=== PATIENT | male | born 1965 | race Caucasian/White ===

== ENCOUNTER 2020-06-08 00:35 | Outpatient (CLI) | payer BC, SELFPAY ==
[2020-06-08 20:15] LABS: SARS-CoV-2 RNA PCR Negative
== END 2020-06-08 00:36 | disposition home or self-care (01) ==
LOC: ANHCOVIDDT 00:35
PROVIDERS: PCP Family Medicine; Visit Provider Internal Medicine Gastroenterology
DX: Z01.818 Encounter for other preprocedural examination (principal); Z20.828 Contact with and (suspected) exposure to other viral communicable diseases
CPT/HCPCS: 87635; C9803; U0003

== ENCOUNTER 2020-06-11 01:23 | Day surgery (SDC) | payer BC, SELFPAY ==
[2020-06-06 09:02] VITALS: BMI 26.6
[2020-06-11 07:52] VITALS: BP 133/93; PULSE 77; RESP 20; TEMP 36.6; O2SAT 100
--- NOTE | 2020-06-11 08:07 | WPDANESEPPF ---
Anes - Initial Pre Proc Eval Procedure: Operation Date: 06/11/20 09:00 Proposed Procedures p Screening Colonoscopy - Misbah Nevarez MD Date/Time: 06/11/20 08:07 Surgeon: Misbah Nevarez MD Pre Op Diagnosis: neoplasm screening Patient Data Age: 55 Gender: M Height: 5 ft 9 in Weight: 82.3 kg Last Vital Signs Temp 36.6 C 06/11/20 07:52 Pulse 77 06/11/20 07:52 Resp 20 06/11/20 07:52 BP 133/93 H 06/11/20 07:52 Pulse Ox 100 06/11/20 07:52 Allergies Allergy/AdvReac Type Severity Reaction Status Date / Time No Known Allergies Allergy Verified 06/11/20 07:50 Home Medications Medication Instructions Recorded Confirmed Type gaervzay-nwh-rlehn acid 300 1 tablet PO DAILY 12/07/19 06/06/20 History mcg-lycopene 600 mcg-lutein 300 mcg tablet zinc acetate 50 mg (zinc) capsule 50 mg PO DAILY 12/07/19 06/06/20 History cholecalciferol (vitamin D3) 50 mcg PO DAILY 06/06/20 06/06/20 History lisinopril 10 mg tablet 10 mg PO DAILY #90 tablet 06/07/20 06/11/20 Rx Patient hx anesthesia problems: none Family hx anesthesia problems: none PMFSH Past Medical History Medical History Benign essential hypertension (~12/07/19) Encounter for screening for malignant neoplasm of colon Prediabetes Umbilical hernia Family History Family History Mother Heart disease S/P CABG x 2 HLD (hyperlipidemia) Father HLD (hyperlipidemia) Heart disease Mother Diabetes mellitus Family history of cardiovascular disease Father Hypertension Other Acute myocardial infarction Social History Social History Smoking status: Never smoker Alcohol intake: current Drinks per week: 4 Alcohol use details: wine on the weekends Substance use: never Living arrangements: alone 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 Questions were solicited and answers provided to the satisfaction of the patient/family/POA.
[2020-06-11] MEDS: LACTATED RINGERS 1,000 ML 150 ML IV CONT (08:09)
--- NOTE | 2020-06-11 08:11 | WPDANESEPPF ---
Anes - Initial Pre Proc Eval Procedure: Operation Date: 06/11/20 09:00 Proposed Procedures p Screening Colonoscopy - Misbah Nevarez MD Date/Time: 06/11/20 08:11 Surgeon: Misbah Nevarez MD Pre Op Diagnosis: neoplasm screening Patient Data Age: 55 Gender: M Height: 5 ft 9 in Weight: 82.3 kg Last Vital Signs Temp 36.6 C 06/11/20 07:52 Pulse 77 06/11/20 07:52 Resp 20 06/11/20 07:52 BP 133/93 H 06/11/20 07:52 Pulse Ox 100 06/11/20 07:52 Allergies Allergy/AdvReac Type Severity Reaction Status Date / Time No Known Allergies Allergy Verified 06/11/20 07:50 Home Medications Medication Instructions Recorded Confirmed Type fphiecyb-kmf-yfbza acid 300 1 tablet PO DAILY 12/07/19 06/06/20 History mcg-lycopene 600 mcg-lutein 300 mcg tablet zinc acetate 50 mg (zinc) capsule 50 mg PO DAILY 12/07/19 06/06/20 History cholecalciferol (vitamin D3) 50 mcg PO DAILY 06/06/20 06/06/20 History lisinopril 10 mg tablet 10 mg PO DAILY #90 tablet 06/07/20 06/11/20 Rx Patient hx anesthesia problems: none Family hx anesthesia problems: none PMFSH Past Medical History Medical History Benign essential hypertension (~12/07/19) Encounter for screening for malignant neoplasm of colon Prediabetes Umbilical hernia Family History Family History Mother Heart disease S/P CABG x 2 HLD (hyperlipidemia) Father HLD (hyperlipidemia) Heart disease Mother Diabetes mellitus Family history of cardiovascular disease Father Hypertension Other Acute myocardial infarction Social History Social History Smoking status: Never smoker Alcohol intake: current Drinks per week: 4 Alcohol use details: wine on the weekends Substance use: never Living arrangements: alone 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 Questions were solicited and answers provided to the satisfaction of the patient/family/POA.
--- NOTE | 2020-06-11 08:32 | PM.HPGS ---
History of Present Illness History of Present Illness Consent: Risks, benefits, and alternatives have been discussed and questions answered. Patient agrees to proceed with procedure. Chief complaint: neoplasm screening Narrative: Hever Rivera is a 55 year old male here for first screening colonoscopy Review of Systems Constitutional: Constitutional: Denies headache(s) and Denies weakness Eyes: Eyes: Denies blurry vision ENT: Reports Normal hearing present, Denies headache(s) and Denies neck pain Cardiovascular: Cardiovascular: Denies chest pain and Denies dyspnea Respiratory: Respiratory: Denies dyspnea Gastrointestinal: Gastrointestinal: Reports no additional gastrointestinal complaints Genitourinary: Genitourinary: Denies dysuria Musculoskeletal: Musculoskeletal: Denies neck pain Integumentary/Breasts: Skin/Breast: Denies dry skin Neurologic: Reports Normal hearing present, Denies headache(s) and Denies weakness Psychiatric: Psychiatric: Denies anxiety Endocrine: Endocrine: Denies change in body appearance Hematologic/Lymphatic: Hematologic/Lymphatic: Denies easy bleeding Allergic/Immunologic: Allergic/Immunologic: Denies urticaria PMF Past Medical History Medical History Benign essential hypertension (~12/07/19) Encounter for screening for malignant neoplasm of colon Prediabetes Umbilical hernia Family History Family History Mother Heart disease S/P CABG x 2 HLD (hyperlipidemia) Father HLD (hyperlipidemia) Heart disease Mother Diabetes mellitus Family history of cardiovascular disease Father Hypertension Other Acute myocardial infarction Social History Social History Smoking status: Never smoker Alcohol intake: current Drinks per week: 4 Alcohol use details: wine on the weekends Substance use: never Living arrangements: alone 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 Gender identity (if verbalized by the patient): Male Spiritual care concerns: No Meds Home Medications and Allergies Home Medications Medication Instructions Recorded Confirmed Type bdcumopy-zqb-edmdk acid 300 1 tablet PO DAILY 12/07/19 06/06/20 History mcg-lycopene 600 mcg-lutein 300 mcg tablet zinc acetate 50 mg (zinc) capsule 50 mg PO DAILY 12/07/19 06/06/20 History cholecalciferol (vitamin D3) 50 mcg PO DAILY 06/06/20 06/06/20 History lisinopril 10 mg tablet 10 mg PO DAILY #90 tablet 06/07/20 06/11/20 Rx Allergies Allergy/AdvReac Type Severity Reaction Status Date / Time No Known Allergies Allergy Verified 06/11/20 07:50 Vital Signs Vital Signs - 24 hr 06/11/20 07:52 Temperature 97.8 F Pulse Rate 77 Respiratory Rate 20 Blood Pressure 133/93 H Pulse Oximetry 100 Exam Const: General: comfortable and no acute distress HENMT: General nose exam: Normal nares present Eyes: General: appearance normal, both eyes and all related structures Neck: Neck: no JVD Resp: Auscultation: clear to auscultation bilaterally Cardio: Rate: regular rate Rhythm: regular rhythm GI: Inspection: non-distended GI Palp: Yes Soft to palpation Skin: General skin exam: normal color Neuro: General: gait normal Speech: normal speech Extrem: General: normal to inspection Psych: Mental Status: mental status grossly normal Assessment and Plan Assessment and plan (1) Encounter for screening for malignant neoplasm of colon: Code(s): Z12.11 - Encounter for screening for malignant neoplasm of colon Status: Acute Assessment and Plan: will proceed with colonoscopy
[2020-06-11 08:50] VITALS: BP 120/79; PULSE 81; RESP 14; O2SAT 94
[2020-06-11 09:00] VITALS: BP 125/85; PULSE 75; RESP 19; O2SAT 98
[2020-06-11 09:10] VITALS: BP 123/78; PULSE 73; RESP 15; O2SAT 96
== END 2020-06-11 09:22 | disposition home or self-care (01) ==
PROVIDERS: PCP Family Medicine; Visit Provider Internal Medicine Gastroenterology
PROC: 0DJD8ZZ Inspection of Lower Intestinal Tract, Via Natural or Artificial Opening Endoscopic (ICD-10-PCS; CPT 45378; principal; 2020-06-11 09:00)
DX: Z12.11 Encounter for screening for malignant neoplasm of colon (principal); K64.8 Other hemorrhoids; K57.30 Diverticulosis of large intestine without perforation or abscess without bleeding; R73.03 Prediabetes; K42.9 Umbilical hernia without obstruction or gangrene; I10 Essential (primary) hypertension
CPT/HCPCS: 45378; J2704; J7120

== ENCOUNTER → 2022-11-27 09:05 | Outpatient (CLI) | payer OTHER, SELFPAY ==
--- NOTE | ~2022-11-27 | XR_ITS ---
Right Hand Technique: PA, oblique, and lateral views were obtained. Clinical History: Fifth finger injury Findings: There is an oblique intra-articular fracture at the base of the fifth middle phalanx, minim ally displaced. No other fracture or dislocation seen. Joint spaces are preserved. Soft tissues are u nremarkable. Impression: Oblique, intra-articular, minimally displaced fracture of the base of the fifth middle phalanx. Reviewed, dictated and finalized at location M. Impression: Oblique, intra-articular, minimally displaced fracture of the base of the fifth middle phalanx.
== END ==
PROVIDERS: PCP Family Medicine; Visit Provider Nurse Practitioner Family
DX: S62.626A Displaced fracture of middle phalanx of right little finger, initial encounter for closed fracture (principal); X58.XXXA Exposure to other specified factors, initial encounter
CPT/HCPCS: 73130

== ENCOUNTER 2023-08-31 07:56 | Outpatient (CLI) | payer OTHER, SELFPAY ==
--- NOTE | 2023-08-31 08:01 | ECG_ITS ---
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
== END 2023-08-31 07:57 | disposition home or self-care (01) ==
LOC: ANHSURGERY 08:00
PROVIDERS: PCP Family Medicine; Visit Provider Surgery
DX: K40.20 Bilateral inguinal hernia, without obstruction or gangrene, not specified as recurrent (principal); I10 Essential (primary) hypertension; Z01.818 Encounter for other preprocedural examination
CPT/HCPCS: 36415; 86850; 86900; 86901; 93005

== ENCOUNTER 2023-09-01 02:05 | Day surgery (SDC) | payer OTHER, SELFPAY ==
[2023-08-27 14:05] VITALS: BMI 26.6
--- NOTE | 2023-08-27 14:09 | PC.NURSE ---
Report to the Outpatient Waiting Room, entrance under the green pavilion located off [facility], at time 10:00 on date 09/01/23. Planned Procedure Time: 12:00. Time changes happen often and if your time is changed the preop area will call you the afternoon before. - You and your visitor will be asked to self-screen and do not enter if you have any COVID symptoms. - A mask is optional within the hospital at this time. Patients may have clear liquids (water, carbonated beverages, clear teas, apple juice) until 3 hours prior to surgery (9:00) with a maximum of 20 ounces. - No food from midnight until time of surgery Take the following medications with a SIP of water the morning of surgery: NONE DO NOT STOP ANY OF YOUR OTHER PRESCRIPTION MEDICATIONS PRIOR TO SURGERY ?EXCEPT THE FOLLOWING Medications to discontinue per physician: VITAMINS/SUPPLEMENTS Date to take last dose: 08/28/23 Please no make-up, nail montserratian, hairspray, perfume, deodorant, or body powder the day of surgery. No jewelry (including any body piercings) or valuables the day of surgery, leave them at home. Please take a shower or bath the night before, or the morning of, surgery with an antibacterial soap. Wear comfortable, loose fitting clothing. - Jewelry must be removed prior to entering the operating room. Rings and piercings that are not removed may be cut off. - The hospital will not accept responsibility for valuables. - Please leave all valuables, including medications, at home the day of surgery. If you are going home after surgery, a licensed emergency detail driver must drive you home. - NO public transportation without another adult if you receive anesthesia. - We recommend that an adult stay with you for 24 hours following discharge. - We also recommend that you do not drive, make important decision, drink alcoholic beverages, or take any drugs that were not prescribed by your health care provider for at least 24 hours after your discharge time. Follow any additional instructions given to you from your surgeon. If you or anyone in your household have experienced Covid symptoms in the past week, please notify your surgeon or the nurse liaison at the phone number below for possible testing. Telephone instructions given to PT - YOLANDA BRAGG and asked if any additional questions and then verbalized understanding. Patient advised to call surgeon office or pre surgery nurse liaison [phone] if any additional questions.
--- NOTE | 2023-08-31 15:06 | WPDANESEPPF ---
Anes - Initial Pre Proc Eval Procedure: Operation Date: 09/01/23 12:00 Proposed Procedures p Robotic Assisted Bilateral Inguinal Hernia Repair with Mesh, - Hortensia White MD s Open Umbilical Hernia Repair with Mesh - Hortensia White MD Date/Time: 08/31/23 15:06 Surgeon: Hortensia White MD Pre Op Diagnosis: bilateral Inguinal Hernia, umbilical hernia 3.5cm Patient Data Age: 58 Gender: M Height: 1.7 m Weight: 77.15 kg Allergies Allergy/AdvReac Type Severity Reaction Status Date / Time No Known Allergies Allergy Verified 09/01/23 10:44 Home Medications Medication Instructions Recorded Confirmed Type mvutybdb-kt-jzdnv 300 mcg-K 60 1 tablet PO DAILY 12/07/19 09/01/23 History mcg-lycop 600 mcg-lutein 300 mcg tablet (Centrum Silver Men) zinc acetate 50 mg (zinc) capsule 50 mg PO DAILY 12/07/19 09/01/23 History (Galzin) lisinopril 10 mg tablet 10 mg PO DAILY #90 tabs 07/07/23 09/01/23 Rx omeprazole 20 mg capsule,delayed 20 mg PO DAILY #90 caps 07/07/23 09/01/23 Rx release Patient hx anesthesia problems: none Family hx anesthesia problems: none Results Review: All pre-operative results and documents have been reviewed as part of the pre-operative evaluation. [facility] Past Medical History Medical History Benign essential hypertension (~12/07/19) Displaced fracture of base of fifth metacarpal bone (~11/2022) right - managed conservatively GERD without esophagitis Prediabetes Seasonal allergies Umbilical hernia Family History Family History Mother Heart disease S/P CABG x 2 HLD (hyperlipidemia) Father HLD (hyperlipidemia) Heart disease Mother Diabetes mellitus Family history of cardiovascular disease Father Hypertension Other Acute myocardial infarction Social History Social History Smoking status: Never smoker Alcohol intake: current Drinks per week: 4 Alcohol use details: RARE Substance use: never Substance use type: does not use Lack of Transportation: No Lack of Food: Never True Current Housing: I Have Housing Concerned About Future Housing: No Difficulty Paying Gas/Electric Bills: No Difficulty Paying for Meds: No Currently Unemployed: No Education: Decline to Answer Difficulty w/ Childcare or Family Care: No Living arrangements: with roommate(s) Occupation/Education: occupation Additional occupation/education comments: [employer] Gender identity (if verbalized by the patient): Male Spiritual care concerns: No Agree to blood products: Yes Anes - Eval Final PreProcedure Day of Procedure 08/31/23 15:06 Patient weight: overweight Heart: regular rate and rhythm Lungs: clear to auscultation Airway: Mallampati scale class III Neurological: alert and oriented Last oral intake: >/= 8 hours ASA classification: II Emergent: no Anesthetic plan: proceed Anesthesia type and monitoring: general ETT and standard monitoring Results Review: All pre-operative results and documents have been reviewed as part of the pre-operative evaluation. Informed Consent: The patient's anesthetic plan and its attendant risks and benefits were discussed with the patient/family/POA. Questions were solicited and answers provided to the satisfaction of the patient/family/POA.
[2023-09-01] VITALS (11 sets, daily range): BP systolic 99–146; BP diastolic 58–81; PULSE 48–72; RESP 12–16; TEMP 36.3–36.6; O2SAT 96–100
[2023-09-01] MEDS: KETOROLAC 15 MG/ML VIAL (*BKC) IV PUSH (10:30)
[2023-09-01] MEDS: ACETAMINOPHEN 500 MG TABLET 1000 MG PO (10:30)
[2023-09-01] MEDS: LACTATED RINGERS 1,000 ML 30 ML IV CONT ×3 (10:30→14:55)
--- NOTE | 2023-09-01 10:31 | WPDHPUPDATE1 ---
History and Physical Update Update Date/Time: 09/01/23 10:31 History and Physical has been reviewed, including an updated exam of the patient. There are NO changes in the patient's condition. Risks, benefits, and alternatives have been discussed and questions answered. Patient agrees to proceed with procedure.
[2023-09-01] MEDS: ceFAZolin 2 GM/D5W 50 ML 2 GM/50 ML BAG IVPB (11:56)
[2023-09-01] MEDS: BUPIVACAINE/EPINEPHRINE 0.5% 50 ML VIAL 30 ML INFILTRATE (12:29)
--- NOTE | 2023-09-01 13:48 | W.PM.PROC2 ---
Procedure Note - Detailed Date of Procedure 09/01/23 Pre-op Diagnosis bilateral Inguinal Hernia, umbilical hernia 3 cm Post-op Diagnosis Other (bilateral pantaloon inguinal hernia, left greater than right) Procedure Performed robotic assisted bilateral inguinal hernia repair with mesh, open umbilical hernia repair with mesh with defect noted to be 3 cm Surgeon Hortensia White MD Anesthesia General Indications Pt is a 58 y/o M presenting c 1 yr h/o bulging, discomfort in L groin and umbilicus. Exam consistent with bilateral inguinal hernias left greater than right, umbilical hernia. Findings Bilateral pantaloon hernia, 3 cm umbilical hernia Description of Procedure Patient was brought into the operating room and placed in the supine position. After adequate induction of general anesthesia, the patient was prepped and draped in normal sterile fashion. A time-out was then done to verify the patient's identity, as well as the procedure being performed. I began by making a 8 mm incision in the supraumbilical region, a Veress needle was then placed into the peritoneal cavity. CO2 gas was then insufflated and after adequate pneumoperitoneum was achieved, the Veress needle was removed. I then placed an 8 mm trocar through this incision. I then placed the endoscope through this trocar site and under direct visualization placed 2 further 8 mm ports in the right and left mid abdomen. The [employer] robot was then docked to the 3 trocar sites. I then scrubbed out and went to the robotic console. Upon examining the pelvis, it was noted that the patient had a larger sized left inguinal hernia. The right side was examined and a moderate hernia defect was noted. I began by making a preperitoneal flap approximately 6 cm superior to the left sided defect. This flap was carried medially past the umbilical ligaments and laterally to the transversalis. It then began dissection of my medial compartment taking this down to the pubic tubercle. Upon dissection of this area, a large direct hernia was encountered. I was able to dissect and reduce this direct hernia. I then began the lateral dissection taking this down to the transversalis fascia. Once these compartments were achieved, I began dissection around the cord structures. A moderate sized indirect hernia was noted at this point. Using careful dissection, was able to reduce indirect hernia sac off the cord structures. Once this was adequately done, I went ahead and placed a large piece of 3D Max mesh into the abdominal cavity. The mesh was carefully positioned, centering the center of the mesh over the direct defect. Once this was done, was very satisfied with our repair. Using 3-0 Vicryl sutures, I tacked the mesh medially to Guanakito's ligament. Two lateral sutures were placed from the mesh to the transversalis fascia. I then began on the right side by making a preperitoneal flap approximately 6 cm superior to the defect. This flap was carried medially past the umbilical ligaments and laterally to the transversalis. It then began dissection of my medial compartment taking this down to the pubic tubercle. I again encountered a moderate-sized direct hernia. This was again reduced back into the preperitoneal space. I then began the lateral dissection taking this down to the transversalis fascia. Once these compartments were achieved, I began dissection around the cord structures. A small indirect hernia was noted at this point. Using careful dissection, was able to reduce indirect hernia sac off the cord structures. Once this was adequately done, I went ahead and placed a large piece of 3D Max mesh into the abdominal cavity. The mesh was carefully positioned, centering the center of the mesh over the direct defect. Once this was done, was very satisfied with our repair. Using 3-0 Vicryl sutures, I tacked the mesh medially to Guanakito's ligament. Two lateral sutures were placed from the mesh to the transversalis
[2023-09-01] MEDS: oxyCODONE HCL (*CRX) 5 MG TAB IR PO (15:35)
== END 2023-09-01 16:21 | disposition home or self-care (01) ==
PROVIDERS: PCP Family Medicine; Visit Provider Surgery
PROC: 8E0Y4CZ Robotic Assisted Procedure of Lower Extremity, Percutaneous Endoscopic Approach (ICD-10-PCS; CPT 49650; principal; 2023-09-01 12:00)
PROC: (CPT 49650; 2023-09-01 12:00)
DX: K40.20 Bilateral inguinal hernia, without obstruction or gangrene, not specified as recurrent (principal); K42.0 Umbilical hernia with obstruction, without gangrene; K21.9 Gastro-esophageal reflux disease without esophagitis; I10 Essential (primary) hypertension
CPT/HCPCS: 49650; 49594; S2900; 36415; 86850; 86900; 86901; 93005; A9270; C1781; J0330; J0690; J1100; J1170; J1885; J2250; J2371; J2405; J2704; J3010; J7120

== ENCOUNTER 2025-05-08 08:40 | Outpatient (CLI) | payer OTHER, SELFPAY ==
--- OUTSIDE RECORDS SUMMARY | 2025-05-08 08:54 | XMS_ITS | Clinical Summary ---
Author Organization [address] Address [address] [place] [id number] Care Team Providers Care Health Care Specialist Name Role Phone Domenic Ritter MD Primary Care Provider Allergies No known active allergies Medications lisinopriL (PRINIVIL,ZESTR IL) 10 mg tablet Take 1 tablet (10 mg total) by mouth daily Active ondansetron (ZOFRAN) 4 mg tabletIndicatio ns:Nausea Take 1 tablet (4 mg total) by mouth every 8 (eight) hours as needed for nausea 20 tablet Active Additional Information Patient not taking.Reported on 10/09/2024 triamcinolone (KENALOG) 0.1 % ointmentIndicat ions:Contact dermatitis due to urushiol Apply topically 2 (two) times a day 30 g 5 Active predniSONE (DELTASONE) 20 mg tabletIndicatio ns:Contact dermatitis due to urushiol Take 1 tablet (20 mg) by mouth daily Take 3 tablets daily for 5 days. Then take 2 tablets daily for 4 days. Then take 1 tablet daily for 3 days. Then take 0.5 tablet daily for 2 days. 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 Gender Identity Not on file Sexual Orientation Not on file Last Filed Vital Signs Vital Sign Reading Time Taken Comments Blood Pressure 122/62 10/09/2024 6:47 PM CDT Pulse 88 10/09/2024 6:47 PM CDT Temperature 36.7 C (98 F) 10/09/2024 6:47 PM CDT Respiratory Rate 19 10/09/2024 6:47 PM CDT Oxygen Saturation 93% 10/09/2024 6:47 PM CDT Inhaled Oxygen Concentration - - Weight 79.4 kg (175 lb) 10/09/2024 6:47 PM CDT Height 177.8 cm (5' 10) 10/09/2024 6:47 PM CDT Body Mass Index 25.11 10/09/2024 6:47 PM CDT Plan of Treatment Health Maintenance Due Date Last Done Comments Colon Cancer Screening-Colonoscopy 1965 Depression Screening 1965 Hepatitis C Screening 1965 Prostate Cancer Screening-PSA 1965 DTaP/Tdap/Td Vaccine (1 - Tdap) 01/19/1976 Hepatitis B Screening 1983 Regular Well Visit/Exam 18-64 1983 Zoster Vaccine (1 of 2) 2015 Influenza Vaccine (#1) 2025 Pneumococcal vaccine <65 Aged Out No longer eligible based on patient's age to complete this topic Insurance [employer] Advance Directives For more information, please contact: [phone] Documents on File Type Date Recorded 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
--- NOTE | 2025-05-08 09:00 | NEURO_ITS ---
Impression: # Left handed, non-diabetic complains of numbness of hands. ? # Severe left Carpal Tunnel Syndrome. ? # Mild Ulnar Neuropathy around the elbow. ? # Early right Carpal Tunnel Syndrome. ? # Needle/ EMG exam abnormal. ? Nerve Conduction Studies ?Stim Site NR Peak (ms) P-T Amp (?V) Site1 Site2 Delta-P (ms) Dist (cm) Cong (m/s) Left Median Anti Sensory (2-3nd Digit)??? NO RESPONSE Wrist NR Wrist 2-3nd Digit 14.0 Wrist NR Wrist 2-3nd Digit 14.0 Right Median Anti Sensory (2-3nd Digit) Wrist ? 4.4 4.7 Wrist 2-3nd Digit 4.4 14.0 32 Wrist ? 3.9 5.2 Wrist 2-3nd Digit 4.4 14.0 32 Left Radial Anti Sensory (Base 1st Digit) Wrist ? 2.1 21.3 Wrist Base 1st Digit 2.1 0.0 Right Radial Anti Sensory (Base 1st Digit) Wrist ? 2.4 20.5 Wrist Base 1st Digit 2.4 0.0 Left Ulnar Anti Sensory (5th Digit) Wrist ? 3.1 27.5 Wrist 5th Digit 3.1 14.0 45 Right Ulnar Anti Sensory (5th Digit) Wrist ? 2.7 23.8 Wrist 5th Digit 2.7 14.0 52 ?Stim Site NR Onset (ms) O-P Amp (mV) Site1 Site2 Delta-0 (ms) Dist (cm) Cong (m/s) Left Median Motor (Abd Poll Brev) Wrist ? 8.8 2.0 Elbow Wrist 4.4 29.0 66 Elbow ? 13.2 2.1 Right Median Motor (Abd Poll Brev) Wrist ? 3.4 7.9 Elbow Wrist 5.8 29.0 50 Elbow ? 9.2 4.7 Left Ulnar Motor (Abd Dig Minimi) Wrist ? 3.1 6.7 A Elbow Wrist 6.0 30.0 50 A Elbow ? 9.1 5.8 B Elbow Wrist 3.9 20.0 51 B Elbow ? 7.0 5.1 Right Ulnar Motor (Abd Dig Minimi) Wrist ? 3.2 6.0 A Elbow Wrist 5.7 31.0 54 A Elbow ? 8.9 3.9 B Elbow Wrist 4.2 21.0 50 B Elbow ? 7.4 2.7 F Wave Studies ?NR F-Lat (ms) L-R F-Lat (ms) Left Median (Mrkrs) (Abd Poll Brev) ? 34.14 2.69 Right Median (Mrkrs) (Abd Poll Brev) ? 31.45 2.69 Left Ulnar (Mrkrs) (Abd Dig Min) ? 33.28 2.23 Right Ulnar (Mrkrs) (Abd Dig Min) ? 31.05 2.23 Electromyography ?Side Muscle Nerve Root Ins Act Fibs Amp Dur Recrt Comment Right 1stDorInt Ulnar C8-T1 Nml Nml Nml >12ms Nml Left 1stDorInt Ulnar C8-T1 Nml Nml Nml >12ms Nml Right ABD Dig Min Ulnar C8-T1 Nml Nml Nml >12ms Nml Left ABD Dig Min Ulnar C8-T1 Nml Nml Nml >12ms Nml Left Abd Poll Brev Median C8-T1 Nml Nml Decr >12ms +2 Right Abd Poll Brev Median C8-T1 Nml Nml Nml Nml Nml Right Abd Poll Long Radial (Post Int) C7-8 Nml Nml Nml Nml Nml Left Abd Poll Long Radial (Post Int) C7-8 Nml Nml Nml Nml Nml Left BrachioRad Radial C5-6 Nml Nml Nml Nml Nml Right BrachioRad Radial C5-6 Nml Nml Nml Nml Nml Right Ext Digitorum Radial (Post Int) C7-8 Nml Nml Nml Nml Nml Left Ext Digitorum Radial (Post Int) C7-8 Nml Nml Nml Nml Nml Left Ext Indicis Radial (Post Int) C7-8 Nml Nml Nml Nml Nml Right Ext Indicis Radial (Post Int) C7-8 Nml Nml Nml Nml Nml Left FlexPolLong Median (Ant Int) C7-8 Nml Nml Nml Nml Nml Right FlexPolLong Median (Ant Int) C7-8 Nml Nml Nml Nml Nml Right PronatorTeres Median C6-7 Nml Nml Nml Nml Nml Left PronatorTeres Median C6-7 Nml Nml Nml Nml Nml
== END 2025-05-08 08:41 | disposition home or self-care (01) ==
PROVIDERS: PCP Family Medicine; Visit Provider Nurse Practitioner Family
DX: R20.0 Anesthesia of skin (principal); G56.03 Carpal tunnel syndrome, bilateral upper limbs
CPT/HCPCS: 95886; 95911